=== PATIENT | male | born 1960 | race Two or more races ===

== ENCOUNTER 2017-01-06 11:21 | Day surgery (SDC) | payer MEDICARE, OTHER ==
[2017-01-02 11:32] LABS: HEMATOCRIT 40.2 % (40.0-51.0); HEMOGLOBIN 12.5 g/dL (13.6-17.8)
[2017-01-02 11:45] LABS: CALCIUM, SERUM 9.1 MG/DL (8.5-10.4); CHLORIDE, SERUM 103 MMOL/L (96-112); CO2 (CARBON DIOXIDE) 27 MMOL/L (24-34); SODIUM, SERUM 137 MMOL/L (135-148)
[2017-01-02 11:46] LABS: BUN (BLOOD UREA NITROGEN) 22 MG/DL (6-23); CREATININE 4.33 MG/DL (0.70-1.30); GFR AFRICAN AMERICAN 17 ML/MIN (>=60); GFR NON AFRICAN AMERICAN 14 ML/MIN (>=60); GLUCOSE, SERUM 168 MG/DL (60-99)
[~2017-01-06] VITALS: Ht 175.3 cm; Wt 106.6 kg
--- NOTE | ~2017-01-06 | OP ---
Record Of Operation [facility] [address] [place]. [address] NAME: MICHELLE EDLEON : 62 STATUS : [facility]#: [id number] AGE: 56 ADM/REG DATE : 01/06/17 MR#: [id number] REPORT SERV DATE: 01/07/17 DICTATED BY: VINCE MELO DATE: 01/06/17 REPORT STATUS : Draft TRANSCRIBED BY: SHAWN DATE: 01/06/17 DATE OF PROCEDURE: 01/06/2017 PREOPERATIVE DIAGNOSIS: End-stage renal disease. POSTOPERATIVE DIAGNOSIS: End-stage renal disease. PROCEDURE: Right radiocephalic arteriovenous fistula. FASHION ILLUSTRATOR: James Stephens. ANESTHESIA: General. INDICATIONS: The patient is a 56-year-old gentleman with end-stage renal disease, who has been dialyzed via a right IJ PermCath. He needs longer-term dialysis access, so he was consented for intervention. DESCRIPTION OF PROCEDURE: After informed consent was obtained, the patient was taken to the operating room and placed in the supine position on the operating table. General anesthesia was administered. The patient's right upper extremity was prepped and draped in usual sterile fashion. I began with an ultrasound examination of the right upper extremity and found that the right radial artery was about 3 mm in diameter. The cephalic vein was about 4 mm in diameter. A longitudinal skin incision was made along the wrist. Cautery was used to deepen the incision. I dissected out the cephalic vein at a confluence point between two branches. I ligated and divided it. I mobilized it and marked it for orientation. I spatulated the end between the two branches. I flushed the vein well. I systemically heparinized. I dissected out the radial artery and controlled it with vessel loops. I created a longitudinal arteriotomy, onto which I sewed the end of the spatulated cephalic vein. I flushed of air and debris before tying down the sutures. Afterwards, I freed up the soft tissue so that there would be a good thrill within the fistula. I achieved hemostasis and closed the wound in layers. The patient tolerated the procedure well without any intraprocedural complications noted. ELVIN/SHAWN Vince Melo M.D. / [id number] CC: Rosana Michael M.D.
[~2017-01-06 11:21] MED LIST: ASAB PO; ATIVAN2 MG PO; BACTROCR TOP; BUM2 PO; CAT1 PO; COREG6 PO; COZAAR100 MG PO; CRESTOR20 MG PO; CRESTOR40 MG PO; DEMA20 PO; DIOV160 PO; DIOVAN320 MG PO; ELIQUIS 2.5 MG2.5 MG PO; ERY-TAB250 MG PO; FISH-EPA1000 MG PO; FORTAMET500 MG PO; HUMALOG SC; HUMAPUMP SC; HYDROCHLOROT12.5 MG PO; INTEGRA PLUS C1 EACH PO; L40 PO; LEVEMIR SC; LIOR10 PO; LIPITOR40 PO; LOP25 PO; LORTAB PO; LORTAB10 PO; LOTREL1 CA2 PO; LOVAZA1 GM PO; MAX25 PO; NIASPAN750 PO; NITROQUICK0.3 MG SL; NITROSTAT0.4 MG SL; NORCO1 TAB PO; NORV10 PO; NOVLOGPUMP SC; PCET PO; PENTASA500 MG PO; PEPCID40 MG OR; PEPCID40 MG PO; PLAVIX PO; PR25 PO; PRILO PO; REMERON30 MG PO; SANTYL OINTMENT TOP; SANTYL250 MG/GM TOP; SILVADENE1 % TOP; SPIRO25 PO; TOUJEO IM/SC; TOUJEO SC; VALTURN1 PO; VITAMIN D31000 UNIT PO; VITC500 PO; WELCHOL 625 MG625 MG PO; X5 PO; Z100 PO; ZETIA PO; ZOFRAN4 PO; ZOFRAN8 PO
[2017-01-06 11:44] LABS: HEMATOCRIT 41.1 % (40.0-51.0); HEMOGLOBIN 12.8 g/dL (13.6-17.8)
[2017-01-06 11:57] LABS: CHLORIDE, SERUM 100 MMOL/L (96-112); CO2 (CARBON DIOXIDE) 29 MMOL/L (24-34); GFR AFRICAN AMERICAN 22 ML/MIN (>=60); GFR NON AFRICAN AMERICAN 19 ML/MIN (>=60); GLUCOSE, SERUM 200 MG/DL (60-99); POTASSIUM, SERUM 4.8 MMOL/L (3.5-5.3); SODIUM, SERUM 135 MMOL/L (135-148)
[2017-01-06 11:59] LABS: BUN (BLOOD UREA NITROGEN) 17 MG/DL (6-23)
== END 2017-01-06 18:58 | disposition home or self-care (01) ==
LOC: SDC 11:21
PROVIDERS: Surgery
PROC: 031B0ZF Bypass Right Radial Artery to Lower Arm Vein, Open Approach (ICD-10-PCS; principal; 2017-01-06 13:15)
DX: I12.0 Hypertensive chronic kidney disease with stage 5 chronic kidney disease or end stage renal disease (principal); E11.22 Type 2 diabetes mellitus with diabetic chronic kidney disease; N18.6 End stage renal disease; G47.33 Obstructive sleep apnea (adult) (pediatric); I25.10 Atherosclerotic heart disease of native coronary artery without angina pectoris; M54.5 Low back pain; G89.29 Other chronic pain; K21.9 Gastro-esophageal reflux disease without esophagitis; K31.84 Gastroparesis; I25.2 Old myocardial infarction; Z99.2 Dependence on renal dialysis; Z79.899 Other long term (current) drug therapy; Z79.82 Long term (current) use of aspirin; Z95.1 Presence of aortocoronary bypass graft; Z90.49 Acquired absence of other specified parts of digestive tract; Z88.8 Allergy status to other drugs, medicaments and biological substances; Z98.41 Cataract extraction status, right eye; Z98.42 Cataract extraction status, left eye; Z98.890 Other specified postprocedural states
CPT/HCPCS: 36821; 80048; 82962; 85014; 85018; 93005; A9270-GY; J2250; J2370; J2795; J3010